=== PATIENT | female | born 1990 | race African-American/Black ===

== ENCOUNTER → 2016-08-13 | Outpatient (CLI) | payer BC ==
[~2016-08-13] MED LIST: DOCU240C31 PO; FERR325T23 PO; IBUP-1222 PO; NITR100C56 PO; No meds per pt.; OXYC-302 PO
== END | disposition home or self-care (01) ==
LOC: STAR 09:07
PROVIDERS: ATTEND Obstetrics & Gynecology
DX: Z02.9 Encounter for administrative examinations, unspecified (principal)

== ENCOUNTER 2016-08-17 12:23 | Day surgery (SDC) | payer BC ==
[~2016-08-17] VITALS: Ht 147.3 cm; Wt 52.0 kg
[~2016-08-17 12:23] MED LIST changes: +BUPIVACAINE/PF 0.25% ONE; +DEXAMETHASONE 4 MG/ML, 1ML ONE; +EPINEPHRINE 1 MG/ML, 1ML ONE; +FENTANYL PF 250 MCG/5ML ONE; +GLYCOPYRROLATE 0.2MG/1ML ONE; +KETOROLAC 30 MG/1 ML ONE; +MIDAZOLAM 1 MG/ML, 2ML ONE; +NEOSTIGMINE 1 MG/ML, 10ML ONE; +ONDANSETRON 2MG/ML, 2ML ONE; +PROPOFOL 10 MG/ML, 20ML ONE; +PROPOFOL 10 MG/ML, 50ML ONE; +ROCURONIUM 10 MG/ML ONE; +SCOPOLAMINE PATCH, 1.5MG PATCH.TD72 TD ONE; +SODIUM CHLORIDE 0.9% 0 ML ONE; +SUCCINYLCHOLINE 20 MG/ML, 10ML ONE; +VASOPRESSIN 20 UNIT/ML, 1ML ONE
[2016-08-17] MEDS ORDERED: LACTATED RINGERS 1,000 ML IV SCH (12:37)
[2016-08-17 12:38] VITALS: BP 125/79
[2016-08-17] MEDS ORDERED: LIDOCAINE 1%, 2ML SQ PRN (13:00)
[2016-08-17 13:24] LABS: HCG UR OBC PASS
[2016-08-17] MEDS ORDERED: MIDAZOLAM 1 MG/ML, 2ML ONE (13:35)
[2016-08-17] MEDS ORDERED: ONDANSETRON 2MG/ML, 2ML IVPush PRN (14:00)
[2016-08-17] MEDS ORDERED: HYDROcodone/APAP 7.5-325MG/15ML UDC PO PRN (14:00)
[2016-08-17] MEDS ORDERED: ACETAMINOPHEN 325 MG TABLET PO PRN (14:00)
[2016-08-17] MEDS ORDERED: MEPERIDINE/PF 25MG/0.5ML IVPush PRN (14:00)
[2016-08-17] MEDS ORDERED: MIDAZOLAM 1 MG/ML, 2ML IV PRN (14:00)
[2016-08-17] MEDS ORDERED: HYDROmorphone 1 MG/ML, 1ML IV PRN (14:00)
[2016-08-17] MEDS ORDERED: OXYcodone 5 MG/5 ML ORAL.SOL UDC PO PRN (14:00)
[2016-08-17] MEDS ORDERED: FENTANYL PF 100 MCG/2ML IV PRN (14:00)
[2016-08-17] MEDS ORDERED: PROMETHAZINE 25 MG/ML, 1ML IV PRN (14:00)
[2016-08-17] MEDS ORDERED: SCOPOLAMINE PATCH, 1.5MG PATCH.TD72 TD ONE (14:07)
[2016-08-17] MEDS ORDERED: BUPIVACAINE/PF 0.25% INFIL ONE (14:49)
[2016-08-17] MEDS ORDERED: EPINEPHRINE 1 MG/ML, 1ML INFIL ONE (14:50)
[2016-08-17] MEDS ORDERED: SILVER NITRATE STICK TP ONE ×2 (15:12→15:27)
== END 2016-08-17 17:05 | disposition home or self-care (01) ==
LOC: OUT 12:23
PROVIDERS: ATTEND Obstetrics & Gynecology
DX: Z30.2 Encounter for sterilization (principal); N83.8 Other noninflammatory disorders of ovary, fallopian tube and broad ligament; F41.9 Anxiety disorder, unspecified; F32.9 Major depressive disorder, single episode, unspecified; Z98.890 Other specified postprocedural states; F12.10 Cannabis abuse, uncomplicated
CPT/HCPCS: 58661; 81025; 88302; J0171; J0330; J1100; J1885; J2250; J2405; J2704; J2710; J3010; J3490; J7120

== ENCOUNTER 2018-07-24 11:06 | Emergency (ER) | payer OTHER ==
[~2018-07-24] VITALS: Ht 147.3 cm; Wt 58.3 kg
[~2018-07-24 11:06] MED LIST changes: -BUPIVACAINE/PF 0.25% ONE; -DEXAMETHASONE 4 MG/ML, 1ML ONE; -EPINEPHRINE 1 MG/ML, 1ML ONE; -FENTANYL PF 250 MCG/5ML ONE; -GLYCOPYRROLATE 0.2MG/1ML ONE; -KETOROLAC 30 MG/1 ML ONE; -MIDAZOLAM 1 MG/ML, 2ML ONE; -NEOSTIGMINE 1 MG/ML, 10ML ONE; -ONDANSETRON 2MG/ML, 2ML ONE; -PROPOFOL 10 MG/ML, 20ML ONE; -PROPOFOL 10 MG/ML, 50ML ONE; -ROCURONIUM 10 MG/ML ONE; -SCOPOLAMINE PATCH, 1.5MG PATCH.TD72 TD ONE; -SODIUM CHLORIDE 0.9% 0 ML ONE; -SUCCINYLCHOLINE 20 MG/ML, 10ML ONE; -VASOPRESSIN 20 UNIT/ML, 1ML ONE
[2018-07-24] MEDS ORDERED: MAALOX/HYOSCYAMINE/LIDOCAINE 45 ML BTL PO ONE (11:30)
[2018-07-24] MEDS ORDERED: FAMOTIDINE 20 MG TABLET PO ONE (11:30)
[2018-07-24] MEDS ORDERED: FAMOTIDINE 20 MG TABLET ONE (11:32)
[2018-07-24] MEDS ORDERED: MAALOX/HYOSCYAMINE/LIDOCAINE 45 ML BTL ONE (11:32)
[2018-07-24 11:51] LABS: BASOPHILS # (AUTO) 0.05 x10^3/uL (0-0.1); BASOPHILS % (AUTO) 0 % (0-1); EOSINOPHILS # (AUTO) 0.37 x10^3/uL (0-0.4); EOSINOPHILS % (AUTO) 3 % (1-7); LYMPHOCYTES # (AUTO) 2.42 x10^3/uL (1-3.4); LYMPHOCYTES % (AUTO) 19 % (22-44); MD NO; MEAN CORPUSCULAR HEMOGLOBIN 30.6 pg (27.0-34.8); MEAN CORPUSCULAR HGB CONC 33.1 g/dL (32.4-35.8); MEAN CORPUSCULAR VOLUME 92.6 fL (80-100); MEAN PLATELET VOLUME 10.4 fL (7.4-10.4); MONOCYTES # (AUTO) 0.51 x10^3/uL (0.2-0.8); MONOCYTES % (AUTO) 4 % (2-9); NEUTROPHILS # (AUTO) 9.19 x10^3/uL (1.8-6.8); NEUTROPHILS % (AUTO) 73 % (42-75); PLATELET COUNT 248 x10^3/uL (130-400); RED BLOOD COUNT 4.95 x10^6/uL (3.82-5.3); RED CELL DISTRIBUTION WIDTH 13.1 % (9.6-15.2)
[2018-07-24 11:58] LABS: MICROSCOPIC AUTO
[2018-07-24 12:02] LABS: CULTURE INDICATED? NO
[2018-07-24 12:03] LABS: ALANINE AMINOTRANSFERASE 23 U/L (12-78); ALBUMIN 4.1 g/dL (3.4-5.0); ANION GAP 5 mmol/L (5-15); CALCIUM 8.7 mg/dL (8.5-10.1); CHLORIDE 109 mmol/L (98-107); CREATININE 0.78 mg/dL (0.55-1.02)
[2018-07-24 12:07] LABS: ALKALINE PHOSPHATASE 41 U/L (45-117); BILIRUBIN,TOTAL 0.3 mg/dL (0.2-1.0); TOTAL PROTEIN 7.9 g/dL (6.4-8.2)
[2018-07-24 12:35] VITALS: BP 105/67
--- NOTE | 2018-07-24 12:40 | NUR ---
PT VERBALIZES SOME RELIEF OF ABDOMINAL PAIN AFTER GI COCTAIL. C/O MENSTRUAL CRAMPS ALSO. CHART UP FOR RECHECK.
== END 2018-07-24 13:45 | disposition home or self-care (01) ==
LOC: ED 13:39
DX: K25.3 Acute gastric ulcer without hemorrhage or perforation (principal)
CPT/HCPCS: 36415; 76700; 80053; 81001; 83690; 84703; 85025; 99284

== ENCOUNTER 2020-04-17 20:44 | Emergency (ER) | payer OTHER ==
[~2020-04-17] VITALS: Ht 147.3 cm; Wt 54.0 kg
[~2020-04-17 20:44] MED LIST changes: -OXYC-302 PO; +OXYC1TAB14 PO
--- NOTE | 2020-04-17 21:16 | NUR ---
ERP AT BEDSIDE
[2020-04-17 21:37] LABS: HCG UR SG 1.022 (1.003-1.030); MICROSCOPIC AUTO
[2020-04-17 21:51] LABS: BASOPHILS % (AUTO) 1 % (0-1); EOSINOPHILS % (AUTO) 4 % (1-7); LYMPHOCYTES % (AUTO) 40 % (22-44); MEAN CORPUSCULAR HEMOGLOBIN 31.4 pg (27.0-34.8); MEAN CORPUSCULAR HGB CONC 34.4 g/dL (32.4-35.8); MEAN PLATELET VOLUME 10.3 fL (7.4-10.4); MONOCYTES % (AUTO) 5 % (2-9); NEUTROPHILS % (AUTO) 50 % (42-75); PLATELET COUNT 233 x10^3/uL (130-400); RED CELL DISTRIBUTION WIDTH 12.9 % (9.6-15.2)
[2020-04-17 21:54] LABS: MD NO
[2020-04-17 22:05] LABS: ALANINE AMINOTRANSFERASE 26 U/L (12-78); ALBUMIN 3.9 g/dL (3.4-5.0); ANION GAP 8 mmol/L (5-15); CALCIUM 8.7 mg/dL (8.5-10.1); CHLORIDE 111 mmol/L (98-107); CREATININE 1.11 mg/dL (0.55-1.02)
[2020-04-17 22:06] VITALS: BP 104/52
--- NOTE | 2020-04-17 22:06 | NUR ---
PT SITTING UPRIGHT ON GURNEY, RESTING COMFORTABLY WITH USING CELL PHONE. NADN, VSS. PT DENIES ANY NEEDS AT THIS TIME. CALL LIGHT AND PERSONAL BELONGINGS WITHIN REACH.
[2020-04-17 22:07] LABS: ALKALINE PHOSPHATASE 44 U/L (45-117); BILIRUBIN,TOTAL 0.4 mg/dL (0.2-1.0); TOTAL PROTEIN 7.3 g/dL (6.4-8.2)
--- NOTE | 2020-04-17 22:37 | NUR ---
Patient given discharge instructions and they have confirmed that they understand the instructions. Patient ambulatory with steady gait.
== END 2020-04-17 22:44 | disposition home or self-care (01) ==
LOC: ED 22:38
DX: R10.84 Generalized abdominal pain (principal); R42 Dizziness and giddiness; R11.0 Nausea; R94.31 Abnormal electrocardiogram [ECG] [EKG]; Z98.51 Tubal ligation status
CPT/HCPCS: 36415; 80053; 81001; 81025; 83690; 85025; 93005; 99284